=== PATIENT | female | born 1945 | race Caucasian/White ===

== ENCOUNTER 2017-07-10 16:05 | Emergency (ER) | payer MEDICARE, OTHER ==
[~2017-07-10] VITALS: Ht 144.8 cm; Wt 39.0 kg
[~2017-07-10 16:05] MED LIST: ALBU6.7H INH; CEPH500C3 PO; GUAI100S6 PO; MEDR4PAK3 PO; SULF1TAB47 PO; Z.0.NO CURRENT MEDS; ZITH250T PO
[2017-07-10 16:10] VITALS: BP 129/61; PULSE 86; RESP 16; TEMP 97.3; O2SAT 97
[2017-07-10] MEDS ORDERED: MORPHINE SULFATE 2 MG/ML INJ IM ONE (16:45)
[2017-07-10] MEDS ORDERED: DEXAMETHASONE SOD PHOS 4 MG/ML VIAL IM ONE (16:45)
--- NOTE | 2017-07-10 16:48 | PD ---
HPI Chief Complaint: Musculoskeletal Complaint Time Seen by Provider: 16:36 Travel History International Travel<30 days: No Contact w/Intl Traveler<30days: No Traveled to known affect area: No History of Present Illness HPI 72-year-old female here with her son for evaluation of left hip and posterior thigh pain. Patient reports that the pain has been going on for 2 weeks, described as shooting, radiates down her posterior left thigh to her knee. Pain is constant, moderate to severe, worse with movements. She denies trauma. Chart review shows that the patient was treated by pain management Dr. 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 She denies urinary or bowel incontinence or retention. She denies history of cancer. No fevers. No paresthesias or motor deficits. She has tried Tylenol/arthritis medication as well as ibuprofen without relief of symptoms. PFSH Past Medical History Arthritis: Yes Asthma: No Autoimmune Disease: No Blood Disorders: No Anxiety: No Depression: No Heart Rhythm Problems: No Cancer: No Cardiovascular Problems: No High Cholesterol: No Chemotherapy: No Chest Pain: No Congestive Heart Failure: No COPD: No Cerebrovascular Accident: Yes (1991) Diabetes: No Diminished Hearing: No Endocrine: No GERD: No Glaucoma: No Genitourinary: No Headaches: No Hepatitis: No Hiatal Hernia: No Hypertension: No Immune Disorder: No Kidney Stones: No Musculoskeletal: Yes Neurologic: Yes Psychiatric: No Reproductive: No Respiratory: Yes Migraines: No Myocardial Infarction: No Radiation Therapy: No Renal Failure: No Seizures: No Sickle Cell Disease: No Sleep Apnea: No Thyroid Disease: No Ulcer: No Tetanus Vaccination: > 5 Years Influenza Vaccination: No Menopausal: Yes Past Surgical History Abdominal Surgery: No AICD: No Appendectomy: No Arteriovenous Shunt: No Cardiac Surgery: No Cholecystectomy: No Ear Surgery: No Endocrine Surgery: No Eye Surgery: No Genitourinary Surgery: No Gynecologic Surgery: No Insulin Pump: No Joint Replacement: No Oral Surgery: No Pacemaker: No Thoracic Surgery: No Other Surgery: Yes (FACIAL FRACTURES) Social History Alcohol Use: No Tobacco Use: Yes (1pack/3days) Substance Use: No Allergies-Medications (Allergen,Severity, Reaction): Coded Allergies: No Known Allergies (Verified Adverse Reaction, Unknown, 07/10/17) Reported Meds & Prescriptions Reported Meds & Active Scripts Active Hydrocodone-Acetaminophen 5-325 mg Tab 1 Tab PO Q6H PRN Prednisone 20 Mg Tab 40 Mg PO DAILY 5 Days Take 40 mg (2 tablets) daily for 5 days Keflex (Cephalexin Monohydrate) 500 Mg Cap 500 Mg PO QID 5 Days Bactrim Ds (Trimethoprim/Sulfamethoxazole) Tab 1 Tab PO BID 5 Days Zithromax Z-Andrés (Azithromycin) 250 Mg Tab 250 Mg PO DIRECTED 5 Days 500 MG (2 TABLETS) PO ON DAY 1, THEN 250 MG (1 TABLET) PO ON DAYS 2 TO 5. Robitussin Ac (Guaifenesin/Codeine Phosphate) Syrp 5 Ml PO Q4-6HPRN FOR COUGH Medrol Dosepak (Methylprednisolone) 4 Mg Andrés 4 Mg PO DIRECTED TAKE DIRECTED Proventil Hfa (Albuterol Sulfate) 6.7 Gm Aero 1-2 Puff INH Q6HPRN Reported No [facility]s [facility]Miscellaneous Medication) [facility] Systems Except as stated in HPI: all other systems reviewed are Neg Physical Exam Narrative GENERAL: Well-developed, thin, comfortable, no apparent distress. SKIN: Focused skin assessment warm/dry. No rash. HEAD: Atraumatic. Normocephalic. EYES: Pupils equal and round. No scleral icterus. No injection or drainage. ENT: Mucous membranes pink and moist. NECK: Trachea midline. No JVD. CARDIOVASCULAR: Regular rate and rhythm. Bilateral dorsalis pedis pulses are brisk and equal. RESPIRATORY: No accessory muscle use. Clear to auscultation. Breath sounds equal bilaterally. MUSCULOSKELETAL: No obvious deformities. No clubbing. No cyanosis. No edema. Normal range of motion in bilateral lower extremities in flexion and extension at the hip, knee, and ankle joint with normal strength. No midline vertebral step-off or tenderness. There is moderate left SI joint tenderness and left lateral hip/buttock tenderness without overlying warmth or erythema. No masses. NEUROLOGICAL: Awake and alert. No obvious cranial nerve deficits. Motor grossly within normal limits. Normal speech. Normal muscle strength in bilateral lower extremities in flexion and extension at the hip, knee, and ankle joint. Normal sensation in bilateral lower extremities. Great toe extension present bilaterally. No saddle anesthesia. PSYCHIATRIC: Appropriate mood and affect; insight and judgment normal. Data Data Last Documented VS Vital Signs Date Time Temp Pulse Resp B/P (MAP) Pulse Ox O2 Delivery O2 Flow Rate FiO2 07/10/17 16:10 97.3 86 16 129/61 (83) 97 Orders Orders Hip, Uni(4+Vws) W Ap Pelvis (07/10/17 ) Morphine Inj (Morphine Inj) (07/10/17 16:45) Dexamethasone Inj (Decadron Inj) (07/10/17 16:45) MDM Medical Decision Making Medical Screen Exam Complete: Yes Emergency Medical Condition: Yes Differential Diagnosis Sciatica, arthritis, spinal stenosis/cord compression/cauda equina syndrome less likely Narrative Course Vital signs show heart rate 86, blood pressure 129/61, pulse ox 97% on room air , oral temp of 97.3F. Left hip x-ray shows mild osteoarthritic changes, no fractures. Patient was given IM Decadron and IM morphine 4 mg and on reassessment states her pain is feeling much better. She has normal strength and sensation in her bilateral lower extremities. There are no red flags for low back pain. No urinary or bowel incontinence or retention. No saddle anesthesia. Signs and symptoms are consistent with sciatica. I will discharge her home with a prescription for Lortab as well as prednisone. Patient advised not to drink alcohol or operate heavy machinery while taking Lortab. She was advised to follow-up with a primary care physician this week. She was informed on when to return to the emergency department. She verbalizes understanding and agreement with plan. Diagnosis Primary Impression: Sciatica Qualified Codes: M54.32 - Sciatica, left side Referrals: Primary Care Physician 3 days Additional Instructions: Follow-up with a primary care physician this week. Return to the emergency department for worsening symptoms or any other concerns. Scripts Hydrocodone-Acetaminophen (Hydrocodone-Acetaminophen) 5-325 mg Tab 1 TAB PO Q6H Y for PAIN, #12 TAB 0 Refills Prov: Jaswant Grimes MD 07/10/17 Prednisone (Prednisone) 20 Mg Tab 40 MG PO DAILY for 5 Days, #10 TAB 0 Refills Take 40 mg (2 tablets) daily for 5 days Prov: Jaswant Grimes MD 07/10/17 Disposition: 01 DISCHARGE HOME Condition: Stable Jaswant Grimes MD Jul 10, 2017 16:48
--- NOTE | 2017-07-10 17:22 | RADRPT ---
EXAM DATE/TIME: 07/10/2017 16:47 [facility] COMPARISON: No previous studies available for comparison. INDICATIONS : Left hip pain. MEDICAL HISTORY : None. SURGICAL HISTORY : None. ENCOUNTER: Initial ACUITY: 2 weeks PAIN SCORE: 10/10 LOCATION: Left hip, posterior FINDINGS: 3 views of the left hip and pelvis. Diffuse bone demineralization. Bone alignment within normal limit s. No evidence of fracture. Small osteophytes of the left hip. CONCLUSION: Minimal osteoarthritic findings. No evidence of fracture. Jose R Figueroa MD on July 10, 2017 at 17:18 Board Certified Radiologist. This report was verified electronically.
[2017-07-10] MEDS ORDERED: HYDR-3516 PO (17:35)
[2017-07-10] MEDS ORDERED: PRED20 PO (17:35)
== END 2017-07-10 18:04 | disposition home or self-care (01) ==
LOC: PHED 16:05
DX: M54.32 Sciatica, left side (principal); M19.90 Unspecified osteoarthritis, unspecified site; Z86.73 Personal history of transient ischemic attack (TIA), and cerebral infarction without residual deficits; F17.200 Nicotine dependence, unspecified, uncomplicated
CPT/HCPCS: 73503; 96372; 99284; J1100; J2270